=== PATIENT | male | born 1975 | race Caucasian/White ===

== ENCOUNTER 2019-01-15 06:25 | Day surgery (SDC) | payer OTHER ==
[2019-01-14 10:30] VITALS: BMI 26.6
[2019-01-15] MEDS ORDERED: Thrombin 5000 UNITS/5 ML VIAL ONE (06:53)
[2019-01-15] MEDS ORDERED: Bupivacaine HCl 0.5%/Epinephrine 1:200,000/PF 30 ml Vial ONE (06:53)
--- NOTE | 2019-01-15 07:49 | HP ---
HISTORY OF PRESENT ILLNESS: Mr. Belcher is a very pleasant 43-year-old man, here today for evaluation of a left-sided lower back pain as well as posterolateral left lower extremity pain, partial left sided pattern as it stops at the knee. He reports exacerbation with activity and is on horseback nearly every day, which tends to also cause pain to worsen. He has an x-ray of the lumbar spine that reveals degenerative disk disease at L5-S1 with no misalignment. He also has an MRI on thumb drive that reveals in the area of lateral recess stenosis that is moderate to severe on the left side at L5-S1 that could potentially match the symptoms well. He has not had injections in the past, but has done formal exercise program at home and has also been seeing a chiropractor over the last 4 months. He denies any weakness, numbness, or tingling. PAST MEDICAL HISTORY: Chronic pain, diverticulitis, gout, skin cancer, esophageal stricture. PAST SURGICAL HISTORY: Right shoulder cervical fusion, colonoscopy. CURRENT MEDICATIONS: 1. Uloric. 2. Pantoprazole. 3. Aleve. ALLERGIES: NO KNOWN DRUG ALLERGIES. REVIEW OF SYSTEMS: Denies fever, chills, weight loss, night sweats. Denies ingestion. Denies bowel incontinence. Denies urinary incontinence. PHYSICAL EXAMINATION: The patient is alert and oriented x3. Gait is mildly antalgic with positive left straight leg raise. Negative right straight leg raise. ASSESSMENT: Lumbar stenosis with radiculopathy. PLAN: Dr. tSallings met with the patient, reviewed imaging, advocated for a left L5 facetectomy, foraminotomy. He explained to the patient the risks, benefits, and alternatives to the procedure. The patient expressed understanding and elected to move forward with the surgeries discussed. I do believe the patient is mentally competent and capable of making medical decisions for himself. We will move forward with surgery as planned. Job ID: [id number]
[2019-01-15] MEDS ORDERED: Midazolam HCl 2 mg/2 ml Vial ONE (08:24)
[2019-01-15] MEDS ORDERED: Fentanyl 100 MCG/2 ML VIAL ONE (08:25)
--- NOTE | 2019-01-15 11:06 | OP ---
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 DIAGNOSIS: Left L5 radiculopathy. PROCEDURES PERFORMED: Left L5 medial facetectomy, foraminotomy, and decompression. ANESTHESIA: General. DESCRIPTION OF PROCEDURE: The patient was brought into the operating room, placed under general anesthesia. He was flipped from the supine to prone position on the operating room table. A linear incision was planned over the L5 segment. After prepping and draping and after an appropriate preoperative pause, the incision was created. The soft tissues were swept left of midline. A self-retaining retractor was placed in the wound for optimal exposure. After confirming the appropriate level with C-arm fluoroscopy, high-speed cutting drill bit as well as 2, 3, and 4 mm Kerrisons were used to perform a laminectomy along the inferior aspect of L5 and superior aspect of S1. The laminectomy was extended laterally to encompass the medial aspect of the facet joint in order to decompress the exiting L5 nerve root. The wound was irrigated. Hemostasis was maintained throughout. The wound was then closed in anatomic layers and a pressure dressing was applied. There were no known procedural complications. Job ID: [id number]
[2019-01-15] MEDS ORDERED: Cyclobenzaprine 10 MG TAB ONE (13:14)
== END 2019-01-15 13:40 | disposition home or self-care (01) ==
LOC: SDC 06:25
PROVIDERS: ATTEND Neurological Surgery
PROC: 01NB0ZZ Release Lumbar Nerve, Open Approach (ICD-10-PCS; principal; 2019-01-15)
DX: M48.061 Spinal stenosis, lumbar region without neurogenic claudication (principal); M54.16 Radiculopathy, lumbar region; G89.29 Other chronic pain; M10.9 Gout, unspecified; Z98.1 Arthrodesis status; Z79.899 Other long term (current) drug therapy
CPT/HCPCS: 76000; J0670; J0690; J2250; J3010